=== PATIENT | male | born 1940 | race Caucasian/White ===

== ENCOUNTER → 2017-09-18 | Outpatient (CLI) | payer OTHER ==
[~2017-09-18] MED LIST: ACET-1256 PO; ASPI1TAB83 PO; ATOR80TA PO; DTR/5 PO; LEVO175T PO; LISI-461 PO; METO50TA17 PO; MULT-618 PO; OMEG120013 PO; OXYC-643 PO; WARF10TA PO; WARF7.5T4 PO
--- NOTE | 2017-09-18 10:30 | DIAGNOSTIC IMAGING REPORT ---
CERVICAL SPINE W/O CT DOSE: 327.82 mGy.cm HISTORY: Pain CERVICAL RADICULOPATHY TECHNIQUE: Multiaxial CT images of the cervical spine were performed and reformatted in the sagittal and coronal plane without the use of contrast. A dose lowering technique was utilized adhering to the principles of ALARA. COMPARISON: None. FINDINGS: Vertebral body stature is normal. Moderate degenerative intervertebral disc change from C4 through C7. Minimal degenerative change C1-C2 complex. The odontoid process is intact. Moderate degenerative change of the lateral facets throughout. No evidence for significant osseous narrowing of the spinal canal or neural foramina. Moderate straightening of the normal cervical curvature presumably due to muscular spasm. IMPRESSION: 1. Moderate to rather significant degenerative disc change from C4 through C7. 2. Muscular spasm. 3. No major or significant compromise of the cervical canal or neural foramina. The above report was generated using voice recognition software. It may contain grammatical, syntax or spelling errors. Electronically signed by: Jaylon Sultana M.D. 09/18/2017 10:28 AM Dictated Date/Time: 09/18/2017 10:26 AM
== END | disposition home or self-care (01) ==
LOC: C.CTS 09:44
PROVIDERS: ATTEND Pain Medicine Interventional Pain Medicine
DX: M54.2 Cervicalgia (principal)